=== PATIENT | female | born 1955 | race Caucasian/White ===

== ENCOUNTER 2017-12-10 20:35 | Emergency (ER) | payer BC ==
[2017-12-10] MEDS ORDERED: Sodium Chloride 0.9% 10 ML Syringe FLUSH PRN (21:13)
--- NOTE | 2017-12-10 21:14 | EDM.PDOC ---
ED HPI GENERAL MEDICAL PROBLEM - General Chief Complaint: Neurological Problem Stated Complaint: dizzy high blood pressure Time Seen by Provider: 12/10/17 20:54 Source of Information: Reports: Patient History Limitations: Reports: No Limitations - History of Present Illness INITIAL COMMENTS - FREE TEXT/NARRATIVE: 62 y/o F presents with multiple symptoms. She is mostly complaining of malaise, vague dizziness, and just not feeling well. She had a lower dental torus removal completed by an oral surgeon in [place] 4 days ago. She tolerated the procedure well and felt OK the next day. Over the past few days, she's had worsening malaise, dizziness, mild headache, fatigue, and just not feeling well. States her pain has been minimal and she hasn't required pain medications other than an occasional advil which she took mostly for swelling. States intra- oral swelling has also improved. She has mild head discomfort, not really headache, but enough to notice. No vision changes. Denies chest pain/SOB, though her feels that she's seemed slightly SOB. No abdominal pain, vomiting, diarrhea, or urinary symptoms. No lower extremity pain or swelling. She took her blood pressure at home and it was elevated. Usually her pressure runs 100/60 more or less. Today at home was 150 systolic and higher. This is very unusual for her. She is taking Thyroid Armor and has thyroid nodules that are being worked up but is otherwise healthy. No fever. - Related Data Allergies Allergy/AdvReac Type Severity Reaction Status Date / Time No Known Allergies Allergy Verified 12/10/17 20:46 Home Meds: Home Meds Amoxicillin 500 mg PO TID 12/10/17 [History] Lisinopril 5 mg PO DAILY #30 tablet 12/10/17 [Rx] Thyroid [[place] Thyroid] 45 mg PO DAILY 12/10/17 [History] Past Medical History Endocrine/Metabolic History: Reports: Hypothyroidism, Other (See Below) Other Endocrine/Metabolic History: 3 nodules noted to thyroid - Past Surgical History Female Surgical History: Reports: Section Social & Family History - Tobacco Use Smoking Status *Q: Never Smoker - Caffeine Use Caffeine Use: Reports: Coffee, Soda - Recreational Drug Use Recreational Drug Use: No ED ROS GENERAL - Review of Systems Review Of Systems: See Below Constitutional: Reports: Malaise, Weakness, Fatigue. Denies: Fever HEENT: Denies: Vision Change Respiratory: Denies: Cough Cardiovascular: Denies: Chest Pain, Edema Endocrine: Reports: Fatigue GI/Abdominal: Denies: Abdominal Pain, Vomiting : Denies: Dysuria Musculoskeletal: Denies: Leg Pain Skin: Reports: No Symptoms Neurological: Reports: Dizziness, Headache Psychiatric: Reports: No Symptoms Hematologic/Lymphatic: Reports: No Symptoms Immunologic: Reports: No Symptoms ED EXAM, NEURO - Physical Exam Exam: See Below Exam Limited By: No Limitations General Appearance: Alert, WD/WN, No Apparent Distress Eye Exam: Bilateral Eye: EOMI, Normal Inspection, PERRL Ears: Normal External Exam Nose: Normal Inspection Throat/Mouth: Normal Inspection, Normal Teeth, Normal Oropharynx, Normal Voice, No Airway Compromise, Other (sutures along lower gum line are intact, no surrounding swelling or inflammation ) Head Exam: Atraumatic, Normocephalic Neck: Normal Inspection, Supple, Non-Tender, Full Range of Motion. No: Lymphadenopathy (L), Lymphadenopathy (R), Thyromegaly Respiratory/Chest: No Respiratory Distress, Lungs Clear, Normal Breath Sounds, No Accessory Muscle Use, Chest Non-Tender Cardiovascular: Normal Peripheral Pulses, Regular Rate, Rhythm, No Edema, No Murmur GI/Abdominal: Soft, Non-Tender, No Distention. No: Rebound Neurological: Alert, Normal Mood/Affect, Normal Dorsiflexion, Normal Plantar Flexion, No Motor/Sensory Deficits, Oriented x 3 Psychiatric: Normal Affect, Normal Mood Skin Exam: Warm, Dry, Intact, Normal Color, No Rash Course - Vital Signs Last Recorded V/S: Last Vital Signs Temp 37.1 C 12/10/17 20:43 Pulse 61 12/10/17 20:52 Resp 20 12/10/17 20:43 BP 155/77 H 12/10/17 20:52 Pulse Ox 99 12/10/17 20:43 - Orders/Labs/Meds Orders: Active Orders 24 hr Category Date Time Status EKG 12 Lead [EKG Documentation Completion] [RC] STAT Care 12/10/17 21:13 Active Peripheral IV Care [RC] . DIRECTED Care 12/10/17 21:13 Active Peripheral IV Care [RC] . DIRECTED Care 12/10/17 21:14 Active Chest 1V Frontal [CR] Stat Exams 12/10/17 21:13 Taken Head wo Cont [CT] Stat Exams 12/10/17 21:13 Taken CULTURE BLOOD [BC] Stat Lab 12/10/17 21:25 Received CULTURE BLOOD [BC] Stat Lab 12/10/17 21:35 Received UA W/MICROSCOPIC [URIN] Stat Lab 12/10/17 22:00 Ordered Sodium Chloride 0.9% [Saline Flush] Med 12/10/17 21:13 Active 10 ml FLUSH ASDIRECTED PRN Blood Culture x2 Reflex Set [OM.PC] Stat Oth 12/10/17 21:13 Ordered Peripheral IV Insertion Adult [OM.PC] Routine Oth 12/10/17 21:13 Ordered Medication Orders Sodium Chloride (Saline Flush) 10 ml FLUSH ASDIRECTED PRN PRN Reason: Keep Vein Open Last Admin: 12/10/17 21:30 Dose: 10 ml Labs: Laboratory Tests 12/10/17 12/10/17 12/10/17 Range/Units 21:25 21:25 21:25 WBC 5.89 (3.98-10.04) K/mm3 RBC 4.50 (3.98-5.22) M/mm3 Hgb 13.5 (11.2-15.7) gm/L Hct 40.5 (34.1-44.9) % MCV 90.0 (79.4-94.8) fl MCH 30.0 (25.6-32.2) pg MCHC 33.3 (32.2-35.5) g/dl RDW Std Deviation 38.7 (36.4-46.3) fL Plt Count 355 (182-369) K/mm3 MPV 9.4 (9.4-12.3) fl Neut % (Auto) 47.4 (34.0-71.1) % Lymph % (Auto) 37.2 (19.3-51.7) % [place] % (Auto) 8.8 (4.7-12.5) % Eos % (Auto) 6.3 H (0.7-5.8) Baso % (Auto) 0.3 (0.1-1.2) % Neut # (Auto) 2.79 (1.56-6.13) K/mm3 Lymph # (Auto) 2.19 (1.18-3.74) K/mm3 [place] # (Auto) 0.52 H (0.24-0.36) K/mm3 Eos # (Auto) 0.37 H (0.04-0.36) K/mm3 Baso # (Auto) 0.02 (0.01-0.08) K/mm3 Sodium 143 (136-145) mEq/L Potassium 3.7 (3.5-5.1) mEq/L Chloride 104 (98-107) mEq/L Carbon Dioxide 29 (21-32) mEq/L Anion Gap 13.7 (5-15) BUN 10 (7-18) mg/dL Creatinine 0.8 (0.55-1.02) mg/dL Est Cr Clr Drug Dosing 65.04 mL/min Estimated GFR (MDRD) > 60 (>60) mL/min BUN/Creatinine Ratio 12.5 L (14-18) Glucose 117 H (80-115) mg/dL Lactic Acid 1.2 (0.4-2.0) mmol/L Calcium 9.6 (8.5-10.1) mg/dL Magnesium 1.9 (1.8-2.4) mg/dl Total Bilirubin 0.4 (0.2-1.0) mg/dL AST 11 L (15-37) U/L ALT 22 (14-59) U/L Alkaline Phosphatase 78 (46-116) U/L Troponin I < 0.017 (0.00-0.056) ng/mL Total Protein 8.0 (6.4-8.2) g/dl Albumin 4.1 (3.4-5.0) g/dl Globulin 3.9 gm/dL Albumin/Globulin Ratio 1.1 (1-2) Lipase 543 H (73-393) U/L Free T4 (0.76-1.46) ng/dL TSH 3rd Generation (0.358-3.74) uIU/mL Urine Color (Yellow) Urine Appearance (Clear) Urine pH (5.0-8.0) Ur Specific [place] (1.005-1.030) Urine Protein (Negative) Urine Glucose (UA) (Negative) Urine Ketones (Negative) Urine Occult Blood (Negative) Urine Nitrite (Negative) Urine Bilirubin (Negative) Urine Urobilinogen (0.2-1.0) Ur Leukocyte Esterase (Negative) Urine RBC (0-5) /hpf Urine WBC (0-5) /hpf Ur Epithelial Cells (0-5) /hpf Urine Bacteria (FEW) /hpf Urine Mucus (FEW) /hpf 12/10/17 12/10/17 Range/Units 21:25 22:00 WBC (3.98-10.04) K/mm3 RBC (3.98-5.22) M/mm3 Hgb (11.2-15.7) gm/L Hct (34.1-44.9) % MCV (79.4-94.8) fl MCH (25.6-32.2) pg MCHC (32.2-35.5) g/dl RDW Std Deviation (36.4-46.3) fL Plt Count (182-369) K/mm3 MPV (9.4-12.3) fl Neut % (Auto) (34.0-71.1) % Lymph % (Auto) (19.3-51.7) % [place] % (Auto) (4.7-12.5) % Eos % (Auto) (0.7-5.8) Baso % (Auto) (0.1-1.2) % Neut # (Auto) (1.56-6.13) K/mm3 Lymph # (Auto) (1.18-3.74) K/mm3 [place] # (Auto) (0.24-0.36) K/mm3 Eos # (Auto) (0.04-0.36) K/mm3 Baso # (Auto) (0.01-0.08) K/mm3 Sodium (136-145) mEq/L Potassium (3.5-5.1) mEq/L Chloride (98-107) mEq/L Carbon Dioxide (21-32) mEq/L Anion Gap (5-15) BUN (7-18) mg/dL Creatinine (0.55-1.02) mg/dL Est Cr Clr Drug Dosing mL/min Estimated GFR (MDRD) (>60) mL/min BUN/Creatinine Ratio (14-18) Glucose (80-115) mg/dL Lactic Acid (0.4-2.0) mmol/L Calcium (8.5-10.1) mg/dL Magnesium (1.8-2.4) mg/dl Total Bilirubin (0.2-1.0) mg/dL AST (15-37) U/L ALT (14-59) U/L Alkaline Phosphatase (46-116) U/L Troponin I (0.00-0.056) ng/mL Total Protein (6.4-8.2) g/dl Albumin (3.4-5.0) g/dl Globulin gm/dL Albumin/Globulin Ratio (1-2) Lipase (73-393) U/L Free T4 0.91 (0.76-1.46) ng/dL TSH 3rd Generation 1.492 (0.358-3.74) uIU/mL Urine Color Yellow (Yellow) Urine Appearance Clear (Clear) Urine pH 7.0 (5.0-8.0) Ur Specific [place] 1.020 (1.005-1.030) Urine Protein Negative (Negative) Urine Glucose (UA) Negative (Negative) Urine Ketones Negative (Negative) Urine Occult Blood Negative (Negative) Urine Nitrite Negative (Negative) Urine Bilirubin Negative (Negative) Urine Urobilinogen 0.2 (0.2-1.0) Ur Leukocyte Esterase Negative (Negative) Urine RBC Not seen (0-5) /hpf Urine WBC 0-5 (0-5) /hpf Ur Epithelial Cells 0-5 (0-5) /hpf Urine Bacteria Not seen (FEW) /hpf Urine Mucus Not seen (FEW) /hpf Meds: Medications Generic Name Dose Route Start Last Admin Trade Name Freq PRN Reason Stop Dose Admin Sodium Chloride 10 ml 12/10/17 21:13 12/10/17 21:30 Saline Flush FLUSH 10 ml ASDIRECTED PRN Administration Keep Vein Open - Re-Assessments/Exams Free Text/Narrative Re-Assessment/Exam: 12/10/17 22:01 EKG shows normal sinus rhythm, rate 53, printout suggests meets LVH criteria but does not meet LVH criteria by my calculations. 12/10/17 23:49 CT head is normal. CXR shows normal cardiac silhouette, normal mediastinum, normal lung lobo, no acute abnormality. Labs including CBC, electrolytes, LFT' s, troponin, thyroid studies, and UA are normal. Lipase is mildly elevated in 500's but patient has no vomiting, nausea, or abdominal pain. No definite explanation for her malaise/high blood pressure. Her SBP is now 128 without intervention. She is concerned that this is still high for her, but I don't feel that it explains her symptoms. Will provide rx for lisinopril 5mg, advised her to keep a blood pressure log and if consistently elevated to fill rx. Advised her to f/u with PCP for further care, and to return to the ED for any new concerning symptoms. Departure - Departure Time of Disposition: 23:04 Disposition: Home, Self-Care 01 Clinical Impression: High blood pressure Qualifiers: Hypertension type: unspecified Qualified Code(s): I10 - Essential (primary) hypertension - Discharge Information Prescriptions: Lisinopril 5 mg PO DAILY #30 tablet Instructions: Hypertension, [id number] Referrals: April Jacome MD [Primary Care Provider] - Forms: ED Department Discharge Additional Instructions: 1. Follow up with Dr. Rodriguez as soon as possible, ideally this week, for further care 2. Your testing today, including CT head, chest X ray, EKG, complete blood count , electrolytes, liver function tests, renal function tests, urinalysis, and thyroid tests were all normal. 3. Please return to the Emergency Department if you develop any new or worsening conditions, such as worsening headache, chest pain, difficulty breathing, confusion, weakness, or other concerns. 4. Keep a blood pressure log. Check your blood pressure twice daily and bring the log to your appointment with Dr. Sanchez. 5. If your blood pressure is consistently over 140 systolic, go ahead and fill prescription for lisinopril. - My Orders Last 24 Hours: My Active Orders 12/10/17 21:13 EKG 12 Lead [EKG Documentation Completion] [RC] STAT Peripheral IV Care [RC] . DIRECTED Chest 1V Frontal [CR] Stat Head wo Cont [CT] Stat Sodium Chloride 0.9% [Saline Flush] 10 ml FLUSH ASDIRECTED PRN Blood Culture x2 Reflex Set [OM.PC] Stat Peripheral IV Insertion Adult [OM.PC] Routine 12/10/17 21:14 Peripheral IV Care [RC] . DIRECTED 12/10/17 21:25 CULTURE BLOOD [BC] Stat 12/10/17 21:35 CULTURE BLOOD [BC] Stat 12/10/17 22:00 UA W/MICROSCOPIC [URIN] Stat - Assessment/Plan Last 24 Hours: My Active Orders 12/10/17 21:13 EKG 12 Lead [EKG Documentation Completion] [RC] STAT Peripheral IV Care [RC] . DIRECTED Chest 1V Frontal [CR] Stat Head wo Cont [CT] Stat Sodium Chloride 0.9% [Saline Flush] 10 ml FLUSH ASDIRECTED PRN Blood Culture x2 Reflex Set [OM.PC] Stat Peripheral IV Insertion Adult [OM.PC] Routine 12/10/17 21:14 Peripheral IV Care [RC] . DIRECTED 12/10/17 21:25 CULTURE BLOOD [BC] Stat 12/10/17 21:35 CULTURE BLOOD [BC] Stat 12/10/17 22:00 UA W/MICROSCOPIC [URIN] Stat
--- NOTE | 2017-12-11 07:02 | CR ---
Chest: Portable view of the chest was obtained. Comparison: No prior chest x-ray. Heart size and mediastinum are normal. Lungs are clear. Small nodule is noted within the left upper chest within the apex. Lungs otherwise are clear. Bony structures are unremarkable. Impression: 1. Small nodule within the left upper chest measuring approximately 7 mm. Recommend repeat chest x-ray in 9 months to confirm stability. This repeat chest x-ray would occur in August,. 2. Nothing acute is otherwise seen on portable chest x-ray. Diagnostic code #9
--- NOTE | 2017-12-11 07:57 | CT ---
Head CT Technique: Multiple axial sections through the brain were obtained. Intravenous contrast was not utilized. Comparison: No prior intracranial imaging. Findings: Ventricles along with basal cisterns and sulci over the convexities are within normal limits for the patient's age. No abnormal parenchymal densities are seen. No evidence of intracranial hemorrhage. No midline shift or mass effect is seen. Bone window settings were reviewed which show the visualized sinuses to appear clear. No acute calvarial abnormality is seen. Impression: 1. Nothing acute is seen on noncontrast head CT study. Diagnostic code #1 Agree with preliminary report issued by [facility] ([facility] preliminary report dictated on 12/10/17, 11:22 PM Central Time)
== END 2017-12-10 23:26 | disposition home or self-care (01) ==
LOC: JD.ED 20:35
DX: I10 Essential (primary) hypertension (principal); E03.9 Hypothyroidism, unspecified; Z79.899 Other long term (current) drug therapy
CPT/HCPCS: 36415; 70450; 71045; 80053; 81001; 83605; 83690; 83735; 84439; 84443; 84484; 85025; 87040; 93005; 99284; J7050

== ENCOUNTER 2019-05-10 14:49 | Emergency (ER) | payer BC ==
--- NOTE | 2019-05-10 15:36 | EDM.PDOC ---
<Sandoval Lu - Last Filed: 05/10/19 15:26> ED HPI GENERAL MEDICAL PROBLEM - General Chief Complaint: Respiratory Problem Stated Complaint: UPPER RESPIRATORY ISSUES Time Seen by Provider: 05/10/19 15:11 Source of Information: Reports: Patient, Family History Limitations: Reports: No Limitations - History of Present Illness INITIAL COMMENTS - FREE TEXT/NARRATIVE: Pt is 63yo female presenting to ED today with complaints of persistent malaise. Pt states that about 12 days ago she began having URI symptoms. She had sinus congestion, sore throat, cough, fever/chills, and fatigue. Since that time, her URI symptoms have continued to improve, however pt is still not feeling well. She states that her stomach feels 'irritated', and she has been having significant heartburn. Today she feels that her heart has been pounding very hard, and she is feeling lightheaded. She denies nausea, vomiting, diarrhea. Pt went to the walk-in clinic today to be evaluated, and was sent to ED with concerns of possible cardiac etiology. Pt does have significant family cardiac history. Father of an SC and mother has had bypass surgery. - Related Data Allergies Allergy/AdvReac Type Severity Reaction Status Date / Time No Known Allergies Allergy Verified 05/10/19 15:04 Home Meds: Home Meds Thyroid [[place] Thyroid] 45 mg PO DAILY 12/10/17 [History] Cholecalciferol (Vitamin D3) [Vitamin D3] 05/10/19 [History] Fish Oil/[place]-3 Fatty Acids [Fish Oil 1,000 MG] 05/10/19 [History] Polyethylene Glycol 3350 [MiraLAX] 05/10/19 [History] Saccharomyces Boulardii [Probiotic] 05/10/19 [History] Past Medical History Endocrine/Metabolic History: Reports: Hypothyroidism, Other (See Below) Other Endocrine/Metabolic History: 3 nodules noted to thyroid - Past Surgical History Female Surgical History: Reports: Section Social & Family History - Tobacco Use Smoking Status *Q: Never Smoker - Caffeine Use Caffeine Use: Reports: Coffee - Recreational Drug Use Recreational Drug Use: No ED ROS GENERAL - Review of Systems Review Of Systems: See Below Constitutional: Reports: Malaise, Fatigue HEENT: Reports: No Symptoms Respiratory: Reports: No Symptoms Cardiovascular: Reports: Lightheadedness Endocrine: Reports: No Symptoms GI/Abdominal: Reports: Abdominal Pain : Reports: No Symptoms Musculoskeletal: Reports: No Symptoms Skin: Reports: No Symptoms Neurological: Reports: No Symptoms Psychiatric: Reports: No Symptoms Hematologic/Lymphatic: Reports: No Symptoms Immunologic: Reports: No Symptoms ED EXAM, GENERAL - Physical Exam Exam: See Below Exam Limited By: No Limitations General Appearance: Alert, No Apparent Distress Eye Exam: Bilateral Eye: Normal Inspection Ears: Normal External Exam, Hearing Grossly Normal Nose: Normal Inspection, Normal Mucosa, No Blood Throat/Mouth: Normal Lips, Normal Teeth, Normal Gums, Normal Voice, No Airway Compromise, Inflammation (posterior pharynx) Head: Atraumatic, Normocephalic Neck: Normal Inspection, Supple, Non-Tender, Full Range of Motion Respiratory/Chest: No Respiratory Distress, Lungs Clear, Normal Breath Sounds, No Accessory Muscle Use, Chest Non-Tender Cardiovascular: Normal Peripheral Pulses, Regular Rate, Rhythm, No Edema, No Gallop, No JVD, No Murmur GI/Abdominal: Normal Bowel Sounds, Soft, Non-Tender, No Organomegaly, No Distention (Female) Exam: Deferred Rectal (Female) Exam: Deferred Back Exam: Normal Inspection Extremities: Normal Inspection, Non-Tender, No Pedal Edema Neurological: Alert, Oriented, CN II-XII Intact Psychiatric: Normal Affect, Normal Mood Skin Exam: Warm, Dry, Intact, Normal Color, No Rash Lymphatic: No Adenopathy Course - Vital Signs Last Recorded V/S: Last Vital Signs Temp 97.7 F 05/10/19 15:00 Pulse 62 05/10/19 15:00 Resp 15 05/10/19 15:00 BP 172/90 H 05/10/19 15:00 Pulse Ox 100 05/10/19 15:00 - Orders/Labs/Meds Labs: Laboratory Tests 05/10/19 05/10/19 Range/Units 15:43 15:43 WBC 9.23 (3.98-10.04) K/mm3 RBC 4.20 (3.98-5.22) M/mm3 Hgb 12.7 (11.2-15.7) gm/dl Hct 38.2 (34.1-44.9) % MCV 91.0 (79.4-94.8) fl MCH 30.2 (25.6-32.2) pg MCHC 33.2 (32.2-35.5) g/dl RDW Std Deviation 39.9 (36.4-46.3) fL Plt Count 434 H D (182-369) K/mm3 MPV 8.6 L (9.4-12.3) fl Neut % (Auto) 68.6 (34.0-71.1) % Lymph % (Auto) 21.8 (19.3-51.7) % [place] % (Auto) 7.9 (4.7-12.5) % Eos % (Auto) 1.4 (0.7-5.8) Baso % (Auto) 0.1 (0.1-1.2) % Neut # (Auto) 6.33 H (1.56-6.13) K/mm3 Lymph # (Auto) 2.01 (1.18-3.74) K/mm3 [place] # (Auto) 0.73 H (0.24-0.36) K/mm3 Eos # (Auto) 0.13 (0.04-0.36) K/mm3 Baso # (Auto) 0.01 (0.01-0.08) K/mm3 Manual Slide Review Sodium 134 L (136-145) mEq/L Potassium 4.0 (3.5-5.1) mEq/L Chloride 98 (98-107) mEq/L Carbon Dioxide 30 (21-32) mEq/L Anion Gap 10.0 (5-15) BUN 11 (7-18) mg/dL Creatinine 0.8 (0.55-1.02) mg/dL Est Cr Clr Drug Dosing 64.22 mL/min Estimated GFR (MDRD) > 60 (>60) mL/min BUN/Creatinine Ratio 13.8 L (14-18) Glucose 100 (80-115) mg/dL Calcium 9.3 (8.5-10.1) mg/dL Total Bilirubin 0.4 (0.2-1.0) mg/dL AST 21 (15-37) U/L ALT 19 (14-59) U/L Alkaline Phosphatase 86 (46-116) U/L Troponin I < 0.017 (0.00-0.056) ng/mL Total Protein 7.8 (6.4-8.2) g/dl Albumin 3.7 (3.4-5.0) g/dl Globulin 4.1 gm/dL Albumin/Globulin Ratio 0.9 L (1-2) Departure - Departure Disposition: Home, Self-Care 01 Clinical Impression: Atypical chest pain, Viral syndrome - Discharge Information Instructions: Nonspecific Chest Pain, [id number], Viral Illness, Adult Referrals: April Jacome MD [Primary Care Provider] - Forms: ED Department Discharge Additional Instructions: Your heart and lungs have checked out well today as discussed. We did notice that your heart rate is running in upper 40s to mid 50s, somewhat slower than expectation and your blood pressure readings running very mildly high. I would recommend checking your blood pressure and heart rate 2-3 times daily for the next week or so and then make a follow-up appointment with your regular medical provider for about 4-5 days from now. Bring a log of those readings with you for that appointment. Return to ED as needed if symptoms worsening in any way. <Gabriel Meyer - Last Filed: 05/14/19 17:28> Course - Re-Assessments/Exams Free Text/Narrative Re-Assessment/Exam: 05/14/19 17:24 Initial hx and exam was done by Rolando Johnson, 3rd year medical student. I also took a hx from patient and her and examined patient. I agree with the hx and exam as documented. Her initial BP was mildly high and readings did continue mildly elevated while in the ED. Of note her heart varied from upper 40's to mid 50's. EKG did not show other apparent acute abnormality. Her sx and concern going to clinic was more that of having upper resp. sx for about 2 weeks , slow to get better and low energy. Labs including trop were nl. CXR was normal. Findings of mildly elevated BP and relative bradycardia will need further evaluation. Discharge instr. as documented. Departure - Departure Time of Disposition: 17:23
--- NOTE | 2019-05-10 16:41 | CR ---
Chest: Portable view of the chest was obtained. Comparison: Prior chest x-ray of 12/10/17. Heart size is normal. Tortuous thoracic aorta is seen. Lungs are clear. Bony structures are grossly intact. Impression: 1. Nothing acute is seen on portable chest x-ray. Diagnostic code #1
== END 2019-05-10 17:40 | disposition home or self-care (01) ==
LOC: JD.ED 14:49
DX: R07.89 Other chest pain (principal); B34.9 Viral infection, unspecified; E03.9 Hypothyroidism, unspecified; Z79.890 Hormone replacement therapy
CPT/HCPCS: 36415; 71045; 71045-26; 80053; 84484; 85025; 93005; 99283; 99284-25

== ENCOUNTER 2021-08-21 12:46 | Emergency (ER) | payer SELFPAY ==
[2021-08-21] MEDS ORDERED: HYDROmorphone 1 MG/ML Syringe IM ONE (13:24)
== END 2021-08-21 15:21 | disposition home or self-care (01) ==
LOC: JD.ED 12:46
DX: S46.001A Unspecified injury of muscle(s) and tendon(s) of the rotator cuff of right shoulder, initial encounter (principal); E03.9 Hypothyroidism, unspecified; Z79.899 Other long term (current) drug therapy; Z86.16 Personal history of COVID-19; W19.XXXA Unspecified fall, initial encounter
CPT/HCPCS: 73030; 96372; 99283; J1170; 29105; 99284

== ENCOUNTER 2021-09-09 10:48 | Day surgery (SDC) | payer OTHER ==
[~2021-09-09 10:48] MED LIST: EPINEPHrine 1 MG/ML 30 ML MDV IRR SCH; Lactated Ringers 1,000 ML IV SCH; Lidocaine 1%/Sod Bicarbonate in NS 8.4% 1 ML Syringe IDERM PRN; Sodium Chloride 0.9% 10 ML Syringe FLUSH PRN; Sodium Chloride 0.9% 10 ML Syringe FLUSH SCH
[2021-09-09] MEDS ORDERED: Dexmedetomidine 200 MCG/2 ML SDV ONE (11:20)
[2021-09-09] MEDS ORDERED: Ropivacaine 0.5% 5 MG/ML 30 ML SDV ONE (11:21)
[2021-09-09] MEDS ORDERED: Dexamethasone 4 MG/ML 5 ML MDV ONE (11:22)
[2021-09-09] MEDS ORDERED: EPINEPHrine 1 MG/ML SDV ONE (11:25)
[2021-09-09] MEDS ORDERED: fentaNYL 100 MCG/2 ML SDV ONE (11:29)
[2021-09-09] MEDS ORDERED: Midazolam 1 MG/ML 2 ML SDV ONE (11:29)
[2021-09-09] MEDS ORDERED: Propofol 200 MG/20 ML SDV ONE ×2 (11:31→13:02)
[2021-09-09] MEDS ORDERED: ceFAZolin 1 GM Vial ONE (12:22)
[2021-09-09] MEDS ORDERED: Lactated Ringers 1,000 ML ONE (12:32)
== END 2021-09-09 15:46 | disposition home or self-care (01) ==
LOC: JD.SDS 10:48
PROVIDERS: ATTEND Orthopaedic Surgery
DX: S46.011A Strain of muscle(s) and tendon(s) of the rotator cuff of right shoulder, initial encounter (principal); M25.811 Other specified joint disorders, right shoulder; E03.9 Hypothyroidism, unspecified; F51.01 Primary insomnia; E78.00 Pure hypercholesterolemia, unspecified; Z79.899 Other long term (current) drug therapy; Z98.890 Other specified postprocedural states; I10 Essential (primary) hypertension
CPT/HCPCS: 29826; 29827; C1713; J0171; J0690; J1100; J2250; J2370; J2704; J2795; J3010; J7120; 01630; 64415; 76942

== ENCOUNTER 2022-05-17 15:46 | Observation (INO) | payer MEDICARE, BC ==
[2022-05-17] MEDS ORDERED: Sodium Chloride 0.9% 10 ML Syringe FLUSH PRN (16:15)
[2022-05-17] MEDS ORDERED: HYDROmorphone 0.5 MG/0.5 ML Syringe IVPUSH ONE ×3 (16:15→18:39)
[2022-05-17] MEDS ORDERED: Ondansetron 4 MG/2 ML SDV IVPUSH ONE (16:19)
[2022-05-17] MEDS ORDERED: Lidocaine 1% 10 ML MDV INJECT ONE (16:51)
[2022-05-17] MEDS ORDERED: Ondansetron 4 MG Tab.DIS PO ONE (20:09)
[2022-05-17] MEDS ORDERED: Ondansetron 4 MG Tab.DIS ONE (20:10)
[2022-05-17] MEDS ORDERED: HYDROmorphone 1 MG/ML Syringe IVPUSH ONE (21:24)
[2022-05-17] MEDS ORDERED: Ondansetron 4 MG/2 ML SDV ONE (22:22)
[2022-05-17] MEDS ORDERED: Ondansetron 4 MG/2 ML SDV IVPUSH PRN (23:07)
[2022-05-17] MEDS: HYDROmorphone 1 MG/ML Syringe IVPUSH PRN (23:54)
[2022-05-18] MEDS: HYDROmorphone 1 MG/ML Syringe IVPUSH PRN ×2 (02:03→06:05)
[2022-05-18] MEDS: Acetaminophen 325 MG Tab PO PRN ×3 (02:30→14:43)
[2022-05-18] MEDS ORDERED: Sodium Chloride 0.9% 1,000 ML IV SCH (02:30)
[2022-05-18] MEDS: Ketorolac 30 MG/ML SDV IVPUSH SCH ×2 (02:33→08:33)
[2022-05-18] MEDS ORDERED: oxyCODONE 5 MG Tab PO PRN (10:18)
[2022-05-18] MEDS ORDERED: Enoxaparin 40 MG/0.4 ML Syringe SUBCUT ONE (14:22)
[2022-05-18] MEDS ORDERED: Ibuprofen 600 MG Tab PO PRN (14:30)
== END 2022-05-18 17:40 | disposition home or self-care (01) ==
LOC: JD.ED 15:46 → JD.MS 22:05 → MERGE 22:05
PROVIDERS: ADMIT Surgery; ATTEND Surgery
DX: S82.832A Other fracture of upper and lower end of left fibula, initial encounter for closed fracture (principal); S82.392A Other fracture of lower end of left tibia, initial encounter for closed fracture; M19.072 Primary osteoarthritis, left ankle and foot; I10 Essential (primary) hypertension; E78.00 Pure hypercholesterolemia, unspecified; E03.9 Hypothyroidism, unspecified; M85.80 Other specified disorders of bone density and structure, unspecified site; K59.09 Other constipation; Z86.16 Personal history of COVID-19; Z98.890 Other specified postprocedural states; W19.XXXA Unspecified fall, initial encounter
CPT/HCPCS: 36415; 70450; 70486; 73590; 73620; 73700; 80053; 85025; 97116; 97161; 97530; A9270; J1170; J1650; J1885; J2405; J7030

== ENCOUNTER 2022-05-23 07:49 | Day surgery (SDC) | payer MEDICARE, BC ==
[~2022-05-23 07:49] MED LIST changes: +Bupivacaine 0.25% 10 ML SDV ONE; +Dexmedetomidine 200 MCG/2 ML SDV ONE; -EPINEPHrine 1 MG/ML 30 ML MDV IRR SCH; +EPINEPHrine 1 MG/ML SDV ONE; +Lidocaine 1% 4 ML ONE; +Midazolam 1 MG/ML 2 ML SDV ONE; +Ondansetron 4 MG/2 ML SDV ONE; +Propofol 200 MG/20 ML SDV ONE; +Ropivacaine 0.5% 5 MG/ML 30 ML SDV ONE; +fentaNYL 250 MCG/5 ML SDV ONE
[2022-05-23] MEDS ORDERED: Dexamethasone 4 MG/ML 5 ML MDV ONE (08:17)
[2022-05-23] MEDS ORDERED: Phenylephrine HCl In 0.9% NaCl 1 MG/10 ML Vial ONE ×2 (09:32→10:36)
[2022-05-23] MEDS ORDERED: ceFAZolin 2 GM Vial ONE (09:42)
[2022-05-23] MEDS ORDERED: Lactated Ringers 1,000 ML ONE (10:05)
[2022-05-23] MEDS ORDERED: oxyCODONE 5 MG Tab PO ONE (14:05)
== END 2022-05-23 15:50 | disposition home or self-care (01) ==
LOC: JD.SDS 07:49 → MERGE 12:30 → JD.SDS 15:50
PROVIDERS: ATTEND Orthopaedic Surgery
DX: S82.872A Displaced pilon fracture of left tibia, initial encounter for closed fracture (principal); E78.00 Pure hypercholesterolemia, unspecified; I10 Essential (primary) hypertension; E03.9 Hypothyroidism, unspecified; Z79.890 Hormone replacement therapy; M85.80 Other specified disorders of bone density and structure, unspecified site; Z86.16 Personal history of COVID-19; Z98.890 Other specified postprocedural states; W19.XXXA Unspecified fall, initial encounter
CPT/HCPCS: 27827; 76000; A9270; C1713; J0171; J0690; J1100; J2250; J2405; J2704; J2795; J3010; J3490; J7120; 01480; 64450; 76942

== ENCOUNTER 2022-08-15 23:32 | Emergency (ER) | payer MEDICARE, BC ==
[2022-08-16] MEDS ORDERED: LORazepam 2 MG/ML SDV IVPUSH ONE (00:17)
[2022-08-16] MEDS ORDERED: Metoclopramide 10 MG/2 ML SDV IVPUSH ONE (00:17)
[2022-08-16] MEDS ORDERED: Dextrose 5%-Lactated Ringers 1,000 ML IV SCH (00:30)
[2022-08-16 00:58] LABS: ESTIMATED GFR 96 mL/min (>60)
[2022-08-16] MEDS ORDERED: Ibuprofen 600 MG Tab PO ONE (01:04)
[2022-08-16] MEDS ORDERED: Meclizine 25 MG Tab PO ONE (01:52)
== END 2022-08-16 02:13 | disposition home or self-care (01) ==
LOC: JD.ED 23:32
DX: H81.11 Benign paroxysmal vertigo, right ear (principal); I10 Essential (primary) hypertension; Z79.899 Other long term (current) drug therapy; Z79.82 Long term (current) use of aspirin
CPT/HCPCS: 36415; 80053; 83735; 84443; 85025; 86140; 96361; 96374; 96375; 99284; J2060; J2765; J7121

== ENCOUNTER 2023-06-14 06:51 | Day surgery (SDC) | payer MEDICARE, BC ==
[~2023-06-14 06:51] MED LIST changes: -Bupivacaine 0.25% 10 ML SDV ONE; -Dexmedetomidine 200 MCG/2 ML SDV ONE; -EPINEPHrine 1 MG/ML SDV ONE; -Lidocaine 1% 4 ML ONE; -Lidocaine 1%/Sod Bicarbonate in NS 8.4% 1 ML Syringe IDERM PRN; -Midazolam 1 MG/ML 2 ML SDV ONE; +Morphine 8 MG, EPINEPHrine 0.3 MG, Cefuroxime 750 MG, Ketorolac 30 MG, Sodium Chloride ... PRN; -Ondansetron 4 MG/2 ML SDV ONE; -Propofol 200 MG/20 ML SDV ONE; -Ropivacaine 0.5% 5 MG/ML 30 ML SDV ONE; -fentaNYL 250 MCG/5 ML SDV ONE
[2023-06-14] MEDS ORDERED: Tranexamic Acid 1,000 MG/10 ML Vial ONE (07:02)
[2023-06-14] MEDS ORDERED: Vancomycin 1 GM SDV ONE (07:02)
[2023-06-14] MEDS ORDERED: Propofol 200 MG/20 ML SDV ONE ×3 (07:19→09:07)
[2023-06-14] MEDS ORDERED: Midazolam 1 MG/ML 2 ML SDV ONE (07:21)
[2023-06-14] MEDS ORDERED: fentaNYL 100 MCG/2 ML SDV ONE (07:22)
[2023-06-14] MEDS ORDERED: ceFAZolin 2 GM Vial ONE (08:35)
[2023-06-14] MEDS ORDERED: Lactated Ringers 1,000 ML IV ONE (09:00)
[2023-06-14] MEDS ORDERED: ePHEDrine 50 MG/ML SDV ONE (09:00)
[2023-06-14] MEDS ORDERED: Ropivacaine 0.5% 5 MG/ML 30 ML SDV ONE (10:51)
[2023-06-14] MEDS ORDERED: oxyCODONE 5 MG Tab PO ONE (11:01)
== END 2023-06-14 13:07 | disposition home or self-care (01) ==
LOC: JD.SDS 06:51
PROVIDERS: ATTEND Orthopaedic Surgery
DX: M17.11 Unilateral primary osteoarthritis, right knee (principal); I10 Essential (primary) hypertension; E03.9 Hypothyroidism, unspecified; E78.00 Pure hypercholesterolemia, unspecified; R60.9 Edema, unspecified; Z86.16 Personal history of COVID-19; Z79.890 Hormone replacement therapy; Z79.899 Other long term (current) drug therapy
CPT/HCPCS: 0055T; 27447; 64447; 73560; 97116; 97161; A9270; C1713; C1776; J0171; J0690; J0697; J1885; J2250; J2270; J2704; J2795; J3010; J3370; J7030; J7120; 01402; J3490